=== PATIENT | female | born 1955 | race Hispanic/Latino ===

== ENCOUNTER → 2023-04-01 | Outpatient (CLI) | payer OTHER, MEDICARE ==
[~2023-04-01] MED LIST: AEC81 PO; ALEN35TA53 PO; LISI1TAB53 PO; METO-408 PO; ROSU5TAB12 PO
[2023-04-01 11:14] LABS: BASOPHILS # (AUTO) 0.05 K/uL (0.00-0.20); BASOPHILS % (AUTO) 0.9 % (0.0-5.0); EOSINOPHILS # (AUTO) 0.13 K/uL (0.00-0.70); EOSINOPHILS % (AUTO) 2.2 % (0.0-8.0); HEMATOCRIT 34.8 % (36-48); IMMATURE GRANULOCYTE ABSOLUTE 0.01 K/uL (0-1); LYMPHOCYTES % (AUTO) 34.3 % (21.0-51.0); MEAN CORPUSCULAR HEMOGLOBIN 29.1 pg (27.0-33.0); MEAN CORPUSCULAR HGB CONC 32.5 g/dL (32.0-36.0); MEAN CORPUSCULAR VOLUME 89.7 fL (79-99); MONOCYTES # (AUTO) 0.4 K/uL (0.1-1.0); MONOCYTES % (AUTO) 7.2 % (3.0-13.0); NEUTROPHILS # (AUTO) 3.2 K/uL (1.8-7.7); NEUTROPHILS % (AUTO) 55.2 % (40.0-77.0); PLATELET COUNT (AUTO) 208 K/uL (130-400); RED BLOOD CELL COUNT(AUTO) 3.88 MIL/uL (4.00-5.50); RED CELL DISTRIBUTION WIDTH 14.9 % (11.0-15.5); WHITE BLOOD COUNT (AUTO) 5.8 K/uL (4.8-10.8)
[2023-04-01 11:29] LABS: ERYTHROCYTE SEDIMENTATION RATE 8 MM/HR (0-30)
[2023-04-01 11:31] LABS: THYROID STIMULATING HORMONE 1.32 uIU/mL (0.36-3.74)
[2023-04-01 11:38] LABS: CRP QUANTITATIVE < 2.00 mg/L (0.00-9.0)
[2023-04-02 09:15] LABS: RHEUMATOID ARTHRITIS FACTOR 11.9 IU/mL (<14.0)
[2023-04-04 11:13] LABS: B.BURGOR (LYME) IGG WB INTERP Negative (.); LYME IGG WB P18 AB Absent (.); LYME IGG WB P28 AB Absent (.); LYME IGG WB P30 AB Absent (.); LYME IGG WB P39 AB Absent (.); LYME IGG WB P41 AB Absent (.); LYME IGG WB P45 AB Absent (.); LYME IGG WB P58 AB Absent (.); LYME IGG WB P66 AB Absent (.); LYME IGG WB P93 AB Absent (.); LYME IGM-WB INTERP Negative (.); LYME IGM-WB P23 AB Absent (.); LYME IGM-WB P39 AB Absent (.); LYME IGM-WB P41 AB Absent (.)
== END | disposition home or self-care (01) ==
LOC: LAB 09:33
PROVIDERS: ATTEND Orthopaedic Surgery
DX: M47.896 Other spondylosis, lumbar region (principal); M51.36 Other intervertebral disc degeneration, lumbar region; M43.09 Spondylolysis, multiple sites in spine; M54.50 Low back pain, unspecified; R06.09 Other forms of dyspnea; I10 Essential (primary) hypertension; E78.5 Hyperlipidemia, unspecified
CPT/HCPCS: 36415; 84443; 85025; 85651; 86038; 86060; 86140; 86215; 86235; 86431; 86617; 86812

== ENCOUNTER 2023-04-03 06:10 | Day surgery (SDC) | payer OTHER, MEDICARE ==
[2023-04-01 08:40] VITALS: BP 147/70; PULSE 64; RESP 16
[2023-04-01 08:45] LABS: BASOPHILS # (AUTO) 0.05 K/uL (0.00-0.20); BASOPHILS % (AUTO) 0.8 % (0.0-5.0); EOSINOPHILS # (AUTO) 0.17 K/uL (0.00-0.70); EOSINOPHILS % (AUTO) 2.8 % (0.0-8.0); HEMATOCRIT 34.7 % (36-48); IMMATURE GRANULOCYTE ABSOLUTE 0.01 K/uL (0-1); LYMPHOCYTES # (AUTO) 1.9 K/uL (1.0-4.8); LYMPHOCYTES % (AUTO) 32.4 % (21.0-51.0); MEAN CORPUSCULAR HEMOGLOBIN 29.1 pg (27.0-33.0); MEAN CORPUSCULAR HGB CONC 32.6 g/dL (32.0-36.0); MEAN CORPUSCULAR VOLUME 89.4 fL (79-99); MONOCYTES # (AUTO) 0.6 K/uL (0.1-1.0); MONOCYTES % (AUTO) 9.7 % (3.0-13.0); NEUTROPHILS # (AUTO) 3.2 K/uL (1.8-7.7); NEUTROPHILS % (AUTO) 54.1 % (40.0-77.0); PLATELET COUNT (AUTO) 208 K/uL (130-400); RED BLOOD CELL COUNT(AUTO) 3.88 MIL/uL (4.00-5.50); RED CELL DISTRIBUTION WIDTH 14.9 % (11.0-15.5)
[2023-04-01 08:55] LABS: CREATININE 0.9 mg/dL (0.5-1.5); POTASSIUM 3.7 mmol/L (3.5-5.1)
[2023-04-01 08:56] LABS: INR < 0.93 (0.85-1.15)
[2023-04-01 08:58] LABS: PARTIAL THROMBOPLASTIN TIME 25.7 SEC (26.3-35.5)
[~2023-04-03] VITALS: Ht 160 cm; Wt 50.9 kg
[2023-04-03] VITALS (20 sets, daily range): BP systolic 109–135; BP diastolic 56–77; PULSE 48–86; RESP 10–22
[2023-04-03] MEDS ORDERED: 0.9%NACL 1000ML 1,000 ML IV ONE ×2 (06:25→06:26)
[2023-04-03] MEDS ORDERED: LIDOCAINE HCL 400MG/20ML VIAL ONE (07:05)
[2023-04-03] MEDS ORDERED: IOHEXOL 350 MG/ML 100ML INFUS..BTL IV ONE (07:06)
[2023-04-03] MEDS ORDERED: IOHEXOL-350 50ML VIAL IV ONE (07:06)
[2023-04-03] MEDS ORDERED: NITROGLYCERIN 50MG VIAL ONE (07:06)
[2023-04-03] MEDS ORDERED: HEPARIN 10,000 UNIT/10ML (1,000 UNIT/ML) VIAL ONE (07:06)
[2023-04-03] MEDS ORDERED: NICARDIPINE 25MG INJ IV ONE (07:06)
[2023-04-03] MEDS ORDERED: FENTANYL CITRATE PF 50 MCG/1 ML 2ML VIAL ONE (07:31)
[2023-04-03] MEDS ORDERED: MIDAZOLAM HCL 1 MG/ML 2ML VIAL ONE ×2 (07:31→09:33)
[2023-04-03] MEDS ORDERED: MORPHINE 4 MG SYG ONE (08:26)
[2023-04-03] MEDS ORDERED: IOHEXOL-350 75 ML VIAL IV ONE (08:54)
[2023-04-03] MEDS ORDERED: CLOPIDOGREL 300MG TAB ONE (09:07)
[2023-04-03] MEDS ORDERED: ASPIRIN 325MG EC TAB PO ONE (09:07)
[2023-04-03] MEDS ORDERED: DEXTROSE 50%-WATER 50 ML DISP.SYRIN IV PRN (10:00)
[2023-04-03] MEDS ORDERED: 0.9%NACL 1000ML 1,000 ML IV SCH (10:00)
[2023-04-03] MEDS ORDERED: GLUCAGON 1MG KIT 1 MG ML IM PRN (10:00)
[2023-04-03] MEDS ORDERED: ATROPINE 1MG SYG IVP ONE (14:23)
[2023-04-03] MEDS ORDERED: ONDANSETRON 4MG INJ ONE (16:24)
== END 2023-04-03 16:50 | disposition home or self-care (01) ==
LOC: DAH 06:10
PROVIDERS: ATTEND Internal Medicine Cardiovascular Disease
DX: I25.118 Atherosclerotic heart disease of native coronary artery with other forms of angina pectoris (principal); I11.9 Hypertensive heart disease without heart failure; E78.5 Hyperlipidemia, unspecified; Z79.82 Long term (current) use of aspirin; Z79.01 Long term (current) use of anticoagulants; Z79.899 Other long term (current) drug therapy; Z82.49 Family history of ischemic heart disease and other diseases of the circulatory system; Z82.3 Family history of stroke; Z98.890 Other specified postprocedural states
CPT/HCPCS: 80048; 85025; 85610; 85730; 36415; 71045; 93005; 92978; 93571; 85347; 93458; C9600; C1887 ×3; C1894 ×2; C1725 ×2; C1760; C1874; C1753; C1769; J3010; J3490 ×3; J7030 ×2; J0461; J1644 ×3; J2250 ×2; J2405; J2270; Q9967 ×2; A4615; A4215 ×2; A6402; A4222 ×2; A4663; A4216; A4606; Q9965 ×2; A4223 ×4; A4221 ×2; 99156; 99157